=== PATIENT | female | born 1985 | race Caucasian/White ===

== ENCOUNTER 2021-10-02 08:30 | Emergency (ER) | payer OTHER, SELFPAY ==
[2021-10-02 08:40] VITALS: BP 125/76; PULSE 70; RESP 18; TEMP 36.2; O2SAT 100
[2021-10-02 10:40] VITALS: BP 109/71; PULSE 63; RESP 18; O2SAT 100
--- NOTE | 2021-10-02 10:57 | ED.GENADULT ---
HPI - General Adult General Chief complaint: Extremity Injury, Upper Stated complaint: wood in hand Time Seen by Provider: 10/02/21 09:20 Source: patient Mode of arrival: ambulatory Limitations: no limitations History of Present Illness HPI narrative: Patient is 28-year-old female presenting with chief complaint of concern for with foreign body retained in Her right hand that happened yesterday while cutting down her tree. Patient states that she went to urgent care and they stated they cannot help her and she needed to come to the emergency department. She reports feeling a piece of wood in her hand. She reports that she is unsure if she is up-to-date on Tdap. Related Data Home Medications Medication Instructions Recorded Confirmed No Home Medications 10/02/21 10/02/21 Allergies Allergy/AdvReac Type Severity Reaction Status Date / Time No Known Allergies Allergy Unverified 10/02/21 08:45 Review of Systems Review of Systems: CONSTITUTIONAL: Denies fever, chills, or sweats. EYES: Denies visual changes, redness, or discharge. ENT: Denies rhinorrhea, congestion, sore throat, or otalgia. CARDIOVASCULAR: Denies chest pain, palpitations, or edema. RESPIRATORY: Denies cough or dyspnea. GASTROINTESTINAL: Denies abdominal pain, nausea, vomiting, or diarrhea. GENITOURINARY: Denies dysuria or hematuria. SKIN: Reports foreign body denies rash or itching. MUSCULOSKELETAL: Denies back pain, joint pain, or myalgia. NEUROLOGIC: Denies headache, numbness, dizziness, or weakness. PSYCHIATRIC: Denies anxiety or depression. Exam Narrative: GENERAL: Well-appearing, well-nourished, and in no acute distress. HEAD: Normocephalic, atraumatic. EYES: PERRLA and EOMI. CHEST: Clear to auscultation. No respiratory distress. No wheezes rales or rhonchi HEART: Regular rate and rhythm. No murmur heard. Normal peripheral pulses. EXTREMITIES: Normal range of motion. No edema. SKIN: Scab noted to dorsal aspect of right hand at the base of 2nd digit.tender- can palpate foreign body under area. Warm, dry, no rash. NEURO: No focal deficits. Alert and oriented x3. PSYCH: Anxious. Course Vital Signs Vital signs: Vital Signs Temperature 97.2 F L 10/02/21 08:40 Pulse Rate 70 10/02/21 08:40 Respiratory Rate 18 10/02/21 08:40 Blood Pressure 125/76 10/02/21 08:40 Pulse Oximetry 100 10/02/21 08:40 Temperature 97.2 F L 10/02/21 08:40 Pulse Rate 70 10/02/21 08:40 Respiratory Rate 18 10/02/21 08:40 Blood Pressure 125/76 10/02/21 08:40 Pulse Oximetry 100 10/02/21 08:40 Procedures Foreign Body Removal Foreign Body #1: Site: right Technique: removal with forceps and incision made to facilitate removal Confirmed by:: direct visualization, patient report and palpation Complications: none Post-procedure exam: awake, alert Neurovascular: normal distal pulse, normal capillary fill and distal motor function normal Foreign Body Removal Narrative: 2 small pieced of wood removed. I do not palpate superficially another foreign body. Have told patient if she feels foreign bodies deeper then she will need to follow up with hand specialist to discuss additional options and if further exploration is required. Discussed wound care. Medical Decision Making MDM Narrative Medical decision making narrative: I was able to remove 2 small foreign bodies from the area superficially. Patient does not feel any additional foreign bodies at this time. Patient has been informed that if she feels any deeper/retained foreign bodies you need to follow-up with hand specialist to discuss options for further exploration and possible removal. I did warn her that some foreign bodies are left alone unless they cause issues. Patient does not have any bony tenderness or crush injury. Discussed wound care instructions, patient was ready for discharge. Vital Signs Vital Signs: Vital Signs Temperature 97.2 F L
== END 2021-10-02 10:45 | disposition home or self-care (01) ==
PROVIDERS: Emergency Provider Emergency Medicine
DX: S60.551A Superficial foreign body of right hand, initial encounter (principal); W45.8XXA Other foreign body or object entering through skin, initial encounter
CPT/HCPCS: 10120; 99282

== ENCOUNTER 2023-05-11 00:49 | Emergency (ER) | payer OTHER, SELFPAY ==
--- NOTE | ~2023-05-11 | XR_ITS ---
EXAMINATION: XR chest 1V portable INDICATION: Shortness of breath TECHNIQUE: Portable AP chest at 0108 hours COMPARISON: None available FINDINGS: The lungs are free of acute opacities. No pleural effusion or pneumothorax. The cardiomedia stinal silhouette is normal. IMPRESSION: 1. No acute cardiopulmonary abnormality. Reviewed, dictated and finalized at location A.
[2023-05-11 00:51] VITALS: BP 129/71; PULSE 86; RESP 22; TEMP 36.2; O2SAT 100
--- NOTE | 2023-05-11 00:58 | ECG_ITS ---
Measurements Intervals [place] Rate: 68 P: 48 OR: 141 QRS: 11 QRSD: 83 T: 26 QT: 382 QTc: 407 Interpretive Statements SINUS RHYTHM NORMAL ECG NO PREVIOUS ECG AVAILABLE FOR COMPARISON Electronically Signed On 05-11-2023 7:30:32 CDT by Tal Randall D.O.
[2023-05-11 01:44] LABS: Basophils Absolute Auto 0.1 K/mm3 (0.0-0.1); Basophils Percent Auto 0.7 % (0.2-1.2); Eosinophils Absolute Auto 0.3 K/mm3 (0-0.3); Eosinophils Percent Auto 2.5 % (0-4.4); Hematocrit 40.5 % (37.0-47.0); Hemoglobin 13.7 g/dL (12.0-15.0); Immature Granulocyte Absolute 0.02 K/mm3 (0.00-0.031); Immature Granulocyte Percent A 0.2 % (0-0.5); Lymphocytes Absolute Auto 2.86 K/mm3 (0.9-3.2); Lymphocytes Percent Auto 28.6 % (18.3-44.2); Mean Corpuscular HGB Conc 33.8 g/dl (32-36); Mean Corpuscular Hemoglobin 32.9 pg (26-34); Mean Corpuscular Volume 97.1 fl (80-100); Mean Platelet Volume 10.7 fl (7.4-10.4); Monocytes Absolute Auto 0.8 K/mm3 (0.1-0.6); Monocytes Percent Auto 7.9 % (2.6-8.5); Neutrophils Percent Auto 60.1 % (45.5-73.1); Platelet Count Result 225 k/mm3 (150-375); Red Blood Count 4.17 M/mm3 (4.2-5.4); Red Cell Distribution Width 11.8 % (11.5-14.5)
[2023-05-11 01:52] LABS: Pregnancy On Board Control Positive; Urine Pregnancy Test Negative
[2023-05-11 01:53] LABS: Anion Gap 8 mmol/L (8-16); Blood Urea Nitrogen 19 mg/dL (7-17); Calcium 8.8 mg/dL (8.4-10.2); Carbon Dioxide 24 mmol/L (22-30); Chloride 105 mmol/L (98-107); Estimated CRCL calculation 74 ml/min; Estimated Glomerular Filt Rate > 60; Glucose 91 mg/dL (65-110); Potassium 3.5 mmol/L (3.4-5.0); Sodium 137 mmol/L (137-145)
[2023-05-11 02:06] LABS: Troponin I < 0.012 ng/mL (0.000-0.034)
--- NOTE | 2023-05-11 02:22 | ED.GENADULT ---
HPI - General Adult General Chief complaint: Unspecified Stated complaint: anxiety Time Seen by Provider: 05/11/23 00:59 History of Present Illness HPI narrative: Over the last 2 days, patient has been feeling quite anxious, yesterday she had been woken back out of sleep, with feeling of chest pain and shortness of breath and anxiety and feeling foggy, saw her doctor who thought this was likely a panic attack and started her on Lexapro with as needed Xanax. Tonight she had taken a Xanax before going to sleep, but still woke up out of sleep feeling in a panic with chest pain. She does have a history of anxiety and has been a lot of stress recently for her young daughters at home and renovations happening. Related Data Home Medications Medication Instructions Recorded Confirmed No Home Medications 10/02/21 10/02/21 Allergies Allergy/AdvReac Type Severity Reaction Status Date / Time No Known Allergies Allergy Unverified 10/02/21 08:45 Review of Systems Review of Systems: CONST: No fever. HEENT: No sore throat C/V: Chest pain RESP: Difficulty GI: No abdominal pain : No dysuria. M/S: No joint pain. SKIN: No rash. NEURO: brain fog PSYCH: Anxiety [facility] Past Medical History Medical History (Updated 05/11/23 @ 02:26 by Subha Grant MD) Anxiety Exam Narrative: EXAMINATION OF ORGAN SYSTEMS/BODY AREAS: Constitutional: Vital signs per nursing GENERAL: Appearing slightly anxious HEAD: Normal with no signs of head trauma. EYES: EOMI, conjunctiva normal ENT: Hearing grossly intact LUNGS: Nonlabored breathing. Clear to auscultation bilaterally HEART: [Regular rate and rhythm] ABD: [Soft], [nontender to palpation] EXT: Normal range of motion SKIN: [No rashes or lesions.] NEURO: [Alert and oriented x 3. No gross focal sensory or strength deficits.] PSYCH: Normal affect Course Vital Signs Vital signs: Vital Signs Temperature 97.1 F L 05/11/23 00:51 Pulse Rate 86 05/11/23 00:51 Respiratory Rate 22 H 05/11/23 00:51 Blood Pressure 129/71 05/11/23 00:51 Pulse Oximetry 100 05/11/23 00:51 Oxygen Delivery Room Air 05/11/23 00:51 Temperature 97.1 F L 05/11/23 00:51 Pulse Rate 86 05/11/23 00:51 Respiratory Rate 22 H 05/11/23 00:51 Blood Pressure 129/71 05/11/23 00:51 Pulse Oximetry 100 05/11/23 00:51 Oxygen Delivery Room Air 05/11/23 00:51 Medical Decision Making MDM Narrative Medical decision making narrative: Patient with history of anxiety/panic attacks presenting here with symptoms consistent with panic attack. On exam patient is somewhat anxious with otherwise normal cardiopulmonary exam. I will obtain EKG and chest xray to rule out arrhythmia/ischemia, pneumothorax, or other cause of chest discomfort/shortness of breath. Chest x-ray on my independent interpretation does not show any acute abnormality, no pneumothorax or consolidation. EKG - 12-Lead: Performed at 0112. Interpreted by me. [Sinus rhythm]. Rate 68. [Normal] axis. LA-interval [normal]. QRS duration [normal]. QTc [normal]. [No ST segment elevation or depression]. [T-wave normal]. Impression: No EKG evidence of acute ischemia or dysrhythmia. She is PERC negative Labs including CBC, troponin are negative. On reevaluation patient is reassured, resting comfortably, vital signs stable. I do feel patient is stable for discharge home at this time with followup to their doctor, and return here if symptoms return or worsen. Agreeable to outpatient management. Vital Signs Vital Signs: Vital Signs Temperature 97.1 F L 05/11/23 00:51 Pulse Rate 86 05/11/23 00:51 Respiratory Rate 22 H 05/11/23 00:51 Blood Pressure 129/71 05/11/23 00:51 Pulse Oximetry 100 05/11/23 00:51 Oxygen Delivery Room Air 05/11/23 00:51 Temperature 97.1 F L 05/11/23 00:51 Pulse Rate 86 05/11/23 00:51 Respiratory Rate 22 H 05/11/23 00:51 Blood Pressure 129/71 05/11/23 00:51
[2023-05-11 02:47] VITALS: BP 114/66; PULSE 80; RESP 15; O2SAT 99
== END 2023-05-11 02:49 | disposition home or self-care (01) ==
PROVIDERS: Emergency Provider Emergency Medicine
DX: R07.9 Chest pain, unspecified (principal); F43.0 Acute stress reaction
CPT/HCPCS: 36415; 71045; 80048; 81025; 84484; 85025; 93005; 99284